=== PATIENT | female | born 1990 | race Caucasian/White ===

== ENCOUNTER 2017-06-18 19:20 | Emergency (ER) | payer OTHER, MEDICAID ==
[2017-06-18] MEDS ORDERED: Lidocaine 1% 20 ML MDV INFILT ONE (19:21)
[2017-06-18 19:38] VITALS: BP 131/75
--- NOTE | 2017-06-19 02:37 | ER ---
DATE SEEN: 06/18/2017 REASON FOR VISIT: Laceration. 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 PAST MEDICAL HISTORY: Currently 37 weeks , up to date on immunizations. ALLERGIES: Sulfa. PHYSICAL EXAMINATION: GENERAL: Nontoxic. VITAL SIGNS: Blood pressure is normal. Pulse 107, temperature 98.0. EXTREMITIES: Left index revealed a 1.5 cm sized laceration on the medial aspect of the proximal phalanx. IMPRESSION: Superficial laceration. PLAN: Lidocaine was infiltrated locally. I placed three stitches of 4-0 Prolene with no complication. Follow up in 1 week. TIME SEEN: 1930 hours. /[id number] SINTIA/JACKLYN
== END 2017-06-18 19:56 | disposition home or self-care (01) ==
LOC: FB.ED 19:20
DX: O9A.213 Injury, poisoning and certain other consequences of external causes complicating pregnancy, third trimester (principal); S61.211A Laceration without foreign body of left index finger without damage to nail, initial encounter; W26.0XXA Contact with knife, initial encounter; Y99.0 Civilian activity done for income or pay; Z88.2 Allergy status to sulfonamides; Z3A.37 37 weeks gestation of pregnancy
CPT/HCPCS: 12001; 99283

== ENCOUNTER 2017-07-11 23:57 | Inpatient (IN) | payer MEDICAID ==
[2017-07-12] MEDS ORDERED: Sodium Chloride 0.9% 10 ML Syringe FLUSH PRN (03:20)
--- NOTE | 2017-07-12 07:45 | PCM.LDHP ---
L&D History of Present Illness - General Date of Service: 07/12/17 Admit Problem/Dx: Patient Status Order with Admit Dx/Problem 07/12/17 00:08 Admission Status [Patient Status] [ADT] Routine Admission Diagnosis/Problem Admission Diagnosis/Problem -related examination Source of Information: Patient, Old Records History Limitations: Reports: No Limitations - History of Present Illness Timing/Duration: Reports: minutes: (2-5), getting worse Location, : Reports: Abdomen Quality: Reports: Ache Severity: Moderate Present Illness Comments:: Normal to date. 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 Gastrointestinal History: Reports: None Genitourinary History: Reports: None 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: Neurological History: Reports: None Psychiatric History: Reports: Anxiety, Depression Endocrine/Metabolic History: Reports: None Hematologic History: Reports: None Immunologic History: Reports: None Oncologic (Cancer) History: Reports: None Dermatologic History: Reports: None - Infectious Disease History Infectious Disease History: Reports: None - Past Surgical History Head Surgeries/Procedures: Reports: None HEENT Surgical History: Reports: None Cardiovascular Surgical History: Reports: None GI Surgical History: Reports: None Female Surgical History: Reports: None Endocrine Surgical History: Reports: None Musculoskeletal Surgical History: Reports: Other (See Below) Other Musculoskeletal Surgeries/Procedures:: knee surgery. fell today in her driveway and dislocated her right knee. Oncologic Surgical History: Reports: None Social & Family History - Family History Family Medical History: Noncontributory - Tobacco Use Smoking Status *Q: Current Every Day Smoker Years of Tobacco use: 10 Packs/Tins Daily: 0.5 Used Tobacco, but Quit: No Second Hand Smoke Exposure: No - Caffeine Use Caffeine Use: Reports: Coffee, Tea - Recreational Drug Use Recreational Drug Use: No H&P Review of Systems - Review of Systems: Review Of Systems: See Below General: Denies: Fever, Chills HEENT: Reports: No Symptoms Pulmonary: Denies: Shortness of Breath Cardiovascular: Reports: Edema (feet swell PMs). Denies: Chest Pain Gastrointestinal: Denies: Nausea, Vomiting Genitourinary: Denies: Dysuria Musculoskeletal: Reports: Joint Pain (knee strain, previous patellar dislocation ) Skin: Denies: Rash Psychiatric: Reports: Depression, Anxiety Neurological: Denies: Weakness Hematologic/Lymphatic: Denies: Anemia Immunologic: Denies: Anaphylaxis L&D Exam - Exam Exam: See Below - Vital Signs Vital Signs: Last Vital Signs Temp Pulse 110 H 07/12/17 00:07 Resp 18 07/12/17 00:07 BP 126/80 07/12/17 00:07 Pulse Ox 100 07/12/17 00:07 Weight: 176 lb - OB Specific Fundal Height In cm: 38 Contraction Duration (sec): 70-90 Contraction Frequency (min): 5-8 Contraction Intensity: Mild to Moderate Movement: Active Heart Tones: Present Heart Tones per Min: 130 Heart Rate (FHR) Variability: Moderate (6-25 bmp) Presentation: Vertex - Joshi Score Joshi Score Cervix Position: Midposition Joshi Score Consistency: Soft Joshi Score Dilation: 3-4 cm Joshi Score 's Station: -1 ,0 - Exam General: Alert, Oriented HEENT: Pupils Equal Neck: Supple Lungs: Clear to Auscultation, Normal Respiratory Effort Cardiovascular: Regular Rate, Regular Rhythm GI/Abdominal Exam: Normal Bowel Sounds, Soft Genitourinary: Normal external exam, Cervical dilitation Back Exam: Normal Inspection Extremities: Normal Inspection, No Pedal Edema Skin: No: Rash Neurological: No: Hyperreflexia DTR: 2+: Achilles (L), Achilles (R) Psychiatric: Anxious - Problem List (1) Normal labor SNOMED Code(s): 89788218 ICD Code: O80 - ENCOUNTER FOR FULL-TERM UNCOMPLICATED DELIVERY; Z37.9 - OUTCOME OF DELIVERY, UNSPECIFIED Status: Acute Priority: High Current Visit: Yes (2) Normal in third trimester SNOMED Code(s): 26783376 ICD Code: Z34.93 - ENCNTR FOR SUPRVSN OF NORMAL PREG, UNSP, THIRD TRIMESTER Status: Acute Priority: High Current Visit: Yes Problem List Initiated/Reviewed/Updated: Yes Orders Last 24hrs: Active Orders 24 hr Category Date Time Status Admission Status [Patient Status] [ADT] Routine ADT 07/12/17 00:08 Active Communication Order [RC] ASDIRECTED Care 07/12/17 07:29 Ordered Heart Tones [RC] PER UNIT ROUTINE Care 07/12/17 07:29 Ordered Notify Provider Vital Signs [RC] PRN Care 07/12/17 07:29 Ordered Notify Provider [RC] PRN Care 07/12/17 07:29 Ordered Up ad Emmie [RC] ASDIRECTED Care 07/12/17 07:29 Ordered Vital Signs [RC] PER UNIT ROUTINE Care 07/12/17 07:29 Ordered Clear Liquid Diet [DIET] Diet 07/12/17 Lunch Ordered CBC WITH AUTO DIFF [HEME] AM Lab 07/13/17 05:11 Ordered Sodium Chloride 0.9% [Saline Flush] Med 07/12/17 03:20 Active 10 ml FLUSH ASDIRECTED PRN Electronic Heart Tones Ext w TOCO [WOMSER] Per Oth 07/12/17 07:29 Ordered Unit Routine Saline Lock Insert [OM.PC] Routine Oth 07/12/17 03:20 Ordered Resuscitation Status Routine Resus Stat 07/12/17 07:29 Ordered Medication Orders Sodium Chloride (Saline Flush) 10 ml FLUSH ASDIRECTED PRN PRN Reason: Keep Vein Open Last Admin: 07/12/17 03:25 Dose: 10 ml
--- NOTE | 2017-07-12 07:57 | PCM.PNLD ---
Labor Progress Note - VS & Meds Vital Signs: Last Vital Signs Temp Pulse 110 H 07/12/17 00:07 Resp 18 07/12/17 00:07 BP 126/80 07/12/17 00:07 Pulse Ox 100 07/12/17 00:07 Active Medications: Current Medications Sodium Chloride (Saline Flush) 10 ml FLUSH ASDIRECTED PRN PRN Reason: Keep Vein Open Last Admin: 07/12/17 03:25 Dose: 10 ml - Uterine Contractions Uterine Monitoring Mode: External [place] Contraction Frequency (min): 5-8 Contraction Duration (sec): 70-90 Contraction Intensity: Mild to Moderate Uterine Resting Tone: Soft - Monitoring Heart Rate (FHR) Variability: Moderate (6-25 bmp) - Vaginal Exam Dilation (cm): 4 Effacement (Percent): 80 Station: -1 Cervical Position: Midposition Sterile Vaginal Exam Performed By: Elisa Wang - Labor Progress (Free Text) Labor Progress: 27yo at term EDC Admitted with labor, began 2200 last night. Normal to date, No ROM. ABneg Rhogam given. GBS neg. Exam normal. Contr. q2-5 min. FHT good. 130s. Cx. 3cm 75% -2. Anticipate NVD.
--- NOTE | 2017-07-12 11:36 | PCM.PNLD ---
Labor Progress Note - VS & Meds Vital Signs: Last Vital Signs Temp 98 F 07/12/17 09:38 Pulse 83 07/12/17 09:38 Resp 18 07/12/17 09:38 BP 124/72 07/12/17 09:38 Pulse Ox 100 07/12/17 00:07 Active Medications: Current Medications Sertraline HCl (Zoloft) 50 mg PO DAILY KATJA Sodium Chloride (Saline Flush) 10 ml FLUSH ASDIRECTED PRN PRN Reason: Keep Vein Open Last Admin: 07/12/17 03:25 Dose: 10 ml - Uterine Contractions Uterine Monitoring Mode: External [place] Contraction Frequency (min): 1.5-6 Contraction Duration (sec): 70-100 Contraction Intensity: Moderate Uterine Resting Tone: Soft - Monitoring Heart Rate (FHR) Variability: Moderate (6-25 bmp) - Vaginal Exam Dilation (cm): 3-4 Effacement (Percent): 75 Station: -2 Cervical Position: Midposition Sterile Vaginal Exam Performed By: Sonido Nava Vaginal Exam Comment: attempted arom no fluid leaking ay present time - Labor Progress (Free Text) Labor Progress: SROM clear fluid. Contractions 3-5' moderate Cx. 3-4cm 75% -1 FHTs 130s good. Augment with pitocin, Epidural prn.
[2017-07-12] MEDS: Lactated Ringers 1,000 ML IV SCH ×2 (12:32→13:46)
[2017-07-12] MEDS: Oxytocin 10 Units/1 ML SDV IV ONE ×2 (12:39→13:09)
[2017-07-12] MEDS ORDERED: Oxytocin/Normal Saline 10 UNIT/1,000 ML BAG IV SCH (12:45)
[2017-07-12] MEDS: Sertraline 50 MG Tab PO SCH (13:07)
[2017-07-12] MEDS ORDERED: ROPIVACAINE IV ONE (13:15)
[2017-07-12] MEDS ORDERED: Sodium Chloride 0.9% 1,000 ML IV SCH (13:15)
[2017-07-12] MEDS ORDERED: FENTANYL IV ONE (13:15)
[2017-07-12] MEDS ORDERED: Promethazine 25 MG/ML SDV IV PRN (15:18)
[2017-07-12] MEDS ORDERED: Naloxone 0.4 MG/ML SDV IVPUSH PRN (15:18)
[2017-07-12] MEDS ORDERED: diphenhydrAMINE 50 MG/ML SDV IVPUSH PRN (15:18)
[2017-07-12] MEDS ORDERED: Naloxone 0.4 MG in Sodium Chloride 0.9% 100 ML IV PRN (15:18)
[2017-07-12] MEDS ORDERED: ePHEDrine 50 MG/ML SDV IVPUSH PRN (15:18)
[2017-07-12] MEDS ORDERED: hydrOXYzine HCl 50 MG/ML SDV IM PRN ×2 (15:18)
[2017-07-12] MEDS ORDERED: Ondansetron 4 MG/2 ML SDV IVPUSH PRN (15:20)
--- NOTE | 2017-07-12 17:11 | PCM.PNLD ---
Labor Progress Note - VS & Meds Vital Signs: Last Vital Signs Temp 98 F 07/12/17 14:30 Pulse 80 07/12/17 16:30 Resp 16 07/12/17 16:30 BP 109/62 07/12/17 16:30 Pulse Ox 97 07/12/17 16:30 Active Medications: Current Medications Diphenhydramine HCl (Benadryl) 25 mg IVPUSH ASDIRECTED PRN PRN Reason: PRURITUS Ephedrine Sulfate (Ephedrine Sulfate) 5 mg IVPUSH ASDIRECTED PRN PRN Reason: HYPOTENSION Hydroxyzine HCl (Vistaril) 50 mg IM Q6H PRN PRN Reason: PRURITIS Hydroxyzine HCl (Vistaril) 0 mg IM Q4H PRN PRN Reason: N/V Lactated Ringer's (Ringers, Lactated) 1,000 mls @ 150 mls/hr IV ASDIRECTED [facility] Last Admin: 07/12/17 13:46 Dose: 150 mls/hr Oxytocin/Sodium Chloride (Pitocin In Ns 10 Units/1,000 Ml) 10 unit in 1,000 mls @ 12 mls/hr IV TITRATE KATJA; 2 MUNITS/MIN PRN Reason: Protocol Sodium Chloride (Normal Saline) 1,000 mls @ 0 mls/hr IV ASDIRECTED [facility] PRN Reason: KVO Stop: 07/16/17 13:04 Last Infusion: 07/12/17 16:30 Dose: 66 mls/hr Naloxone HCl 0.4 mg/ Sodium (Chloride) 101 mls @ 25 mls/hr IV ASDIRECTED PRN PRN Reason: PER ORDER OF ANESTHESIA Naloxone HCl (Narcan) 0.1 mg IVPUSH ASDIRECTED PRN PRN Reason: RESPIRATORY STATUS Ondansetron HCl (Zofran) 4 mg IVPUSH Q6H PRN PRN Reason: nausea Promethazine HCl (Phenergan) 6.25 - 12.5 mg IV Q4H PRN PRN Reason: NAUSEA AND VOMITING Sertraline HCl (Zoloft) 50 mg PO DAILY [facility] Last Admin: 07/12/17 13:07 Dose: Not Given Sodium Chloride (Saline Flush) 10 ml FLUSH ASDIRECTED PRN PRN Reason: Keep Vein Open Last Admin: 07/12/17 03:25 Dose: 10 ml Discontinued Medications Oxytocin (Pitocin) 10 unit IV ONETIME ONE PRN Reason: Protocol Stop: 07/12/17 11:46 Last Admin: 07/12/17 13:09 Dose: 10 unit - Uterine Contractions Uterine Monitoring Mode: External [place] Contraction Frequency (min): 1.5-4 Contraction Duration (sec): 50-80 Contraction Intensity: Moderate Uterine Resting Tone: Soft - Monitoring Heart Rate (FHR) Variability: Moderate (6-25 bmp) - Vaginal Exam Dilation (cm): 3-4 Effacement (Percent): 75 Station: -1 Cervical Position: Midposition Sterile Vaginal Exam Performed By: Ayala Johnson Vaginal Exam Comment: attempted arom no fluid leaking ay present time - Labor Progress (Free Text) Labor Progress: Comfortable. Dense Epidural anesthetic in place. Contractions q2-3min. FHT 130s good. Cx. 4+cm 80% 0st. cont. pitocin. Anticipate NVD.
--- NOTE | 2017-07-12 20:58 | PCM.PNLD ---
Labor Progress Note - VS & Meds Vital Signs: Last Vital Signs Temp 98 F 07/12/17 14:30 Pulse 88 07/12/17 18:57 Resp 18 07/12/17 18:57 BP 109/66 07/12/17 18:07 Pulse Ox 98 07/12/17 17:30 Active Medications: Current Medications Diphenhydramine HCl (Benadryl) 25 mg IVPUSH ASDIRECTED PRN PRN Reason: PRURITUS Ephedrine Sulfate (Ephedrine Sulfate) 5 mg IVPUSH ASDIRECTED PRN PRN Reason: HYPOTENSION Hydroxyzine HCl (Vistaril) 50 mg IM Q6H PRN PRN Reason: PRURITIS Hydroxyzine HCl (Vistaril) 0 mg IM Q4H PRN PRN Reason: N/V Lactated Ringer's (Ringers, Lactated) 1,000 mls @ 150 mls/hr IV ASDIRECTED [facility] Last Admin: 07/12/17 13:46 Dose: 150 mls/hr Oxytocin/Sodium Chloride (Pitocin In Ns 10 Units/1,000 Ml) 10 unit in 1,000 mls @ 12 mls/hr IV TITRATE KATJA; 2 MUNITS/MIN PRN Reason: Protocol Sodium Chloride (Normal Saline) 1,000 mls @ 0 mls/hr IV ASDIRECTED [facility] PRN Reason: KVO Stop: 07/16/17 13:04 Last Infusion: 07/12/17 16:30 Dose: 66 mls/hr Naloxone HCl 0.4 mg/ Sodium (Chloride) 101 mls @ 25 mls/hr IV ASDIRECTED PRN PRN Reason: PER ORDER OF ANESTHESIA Naloxone HCl (Narcan) 0.1 mg IVPUSH ASDIRECTED PRN PRN Reason: RESPIRATORY STATUS Ondansetron HCl (Zofran) 4 mg IVPUSH Q6H PRN PRN Reason: nausea Promethazine HCl (Phenergan) 6.25 - 12.5 mg IV Q4H PRN PRN Reason: NAUSEA AND VOMITING Sertraline HCl (Zoloft) 50 mg PO DAILY [facility] Last Admin: 07/12/17 13:07 Dose: Not Given Sodium Chloride (Saline Flush) 10 ml FLUSH ASDIRECTED PRN PRN Reason: Keep Vein Open Last Admin: 07/12/17 03:25 Dose: 10 ml Discontinued Medications Oxytocin (Pitocin) 10 unit IV ONETIME ONE PRN Reason: Protocol Stop: 07/12/17 11:46 Last Admin: 07/12/17 13:09 Dose: 10 unit - Uterine Contractions Uterine Monitoring Mode: External [place] Contraction Frequency (min): 2-5 Contraction Duration (sec): 60-80 Contraction Intensity: Moderate Uterine Resting Tone: Soft - Monitoring Heart Rate (FHR) Variability: Moderate (6-25 bmp) - Vaginal Exam Dilation (cm): 8 Effacement (Percent): 90 Station: 1 Cervical Position: Midposition Sterile Vaginal Exam Performed By: Ayala Johnson Vaginal Exam Comment: attempted arom no fluid leaking ay present time - Labor Progress (Free Text) Labor Progress: Doing well. contractions q2-3 min. FHTs 130s. Cx. 9+cm, 90% +1 station. Cont. IV pitocin augmentation. Anticipate NVD.
[2017-07-12] MEDS ORDERED: Lidocaine 1% 20 ML MDV INJECT ONE (21:30)
--- NOTE | 2017-07-12 21:57 | PCM.DEL ---
L & D Note - General Info Date of Service: 07/12/17 - Delivery Note Labor: Augmented by Oxytocin Delivery Outcome: Livebirth Delivery Method: Spontaneous Vaginal Delivery-Single Delivery Mode: Spontaneous Presentation: Left Occiput Anterior (GRACE) Nuchal Cord: Present (cut) Prep: Other (sure cleanse) Anesthesia Type: Epidural Amniotic Fluid Description: Clear Episiotomy Type: None Laceration: Periurethral Placenta: Expressed Cord: 3 Vessels Estimated Blood Loss: 250 Resuscitation Needed: No : Bulb Syringe Score 1 min: 9 Score 5 min: 9 Induction Criteria - Induction Gestational Age >/= 39 wks: Yes Reassuring Monitoring Strip: Yes Absence of Tachy Systole: Yes - Augmentation Estimated Pelvis: Reports: Adequate Weight Estimated:: Reports: AGA Reassuring Monitoring Strip: Yes Absence of Tachy Systole: Yes - General Info Date of Service: 07/12/17 Admission Dx/Problem (Free Text): term . Active labor. Functional Status: Reports: Pain Controlled - Review of Systems General: Denies: Fever HEENT: Reports: No Symptoms Pulmonary: Denies: Shortness of Breath Cardiovascular: Denies: Chest Pain Gastrointestinal: Denies: Abdominal Pain Genitourinary: Denies: Dysuria Musculoskeletal: Denies: Joint Pain Skin: Denies: Rash Neurological: Reports: No Symptoms Psychiatric: Reports: Anxiety - Patient Data Vitals - Most Recent: Last Vital Signs Temp 98 F 07/12/17 14:30 Pulse 88 07/12/17 18:57 Resp 18 07/12/17 18:57 BP 109/66 07/12/17 18:07 Pulse Ox 98 07/12/17 17:30 Weight - Most Recent: 176 lb I&O - Last 24 Hours: Intake & Output 07/12/17 07/12/17 07/12/17 06:59 14:59 22:59 Intake Total 1000 1730 Output Total 700 Balance 1000 1030 Med Orders - Current: Current Medications Diphenhydramine HCl (Benadryl) 25 mg IVPUSH ASDIRECTED PRN PRN Reason: PRURITUS Sertraline HCl (Zoloft) 50 mg PO DAILY KATJA Last Admin: 07/12/17 13:07 Dose: Not Given Discontinued Medications Ephedrine Sulfate (Ephedrine Sulfate) 5 mg IVPUSH ASDIRECTED PRN PRN Reason: HYPOTENSION Hydroxyzine HCl (Vistaril) 50 mg IM Q6H PRN PRN Reason: PRURITIS Hydroxyzine HCl (Vistaril) 0 mg IM Q4H PRN PRN Reason: N/V Lactated Ringer's (Ringers, Lactated) 1,000 mls @ 150 mls/hr IV ASDIRECTED KATJA Last Admin: 07/12/17 13:46 Dose: 150 mls/hr Oxytocin/Sodium Chloride (Pitocin In Ns 10 Units/1,000 Ml) 10 unit in 1,000 mls @ 12 mls/hr IV TITRATE KATJA; 2 MUNITS/MIN PRN Reason: Protocol Sodium Chloride (Normal Saline) 1,000 mls @ 0 mls/hr IV ASDIRECTED KATJA PRN Reason: KVO Stop: 07/16/17 13:04 Last Infusion: 07/12/17 16:30 Dose: 66 mls/hr Naloxone HCl 0.4 mg/ Sodium (Chloride) 101 mls @ 25 mls/hr IV ASDIRECTED PRN PRN Reason: PER ORDER OF ANESTHESIA Naloxone HCl (Narcan) 0.1 mg IVPUSH ASDIRECTED PRN PRN Reason: RESPIRATORY STATUS Ondansetron HCl (Zofran) 4 mg IVPUSH Q6H PRN PRN Reason: nausea Oxytocin (Pitocin) 10 unit IV ONETIME ONE PRN Reason: Protocol Stop: 07/12/17 11:46 Last Admin: 07/12/17 13:09 Dose: 10 unit Promethazine HCl (Phenergan) 6.25 - 12.5 mg IV Q4H PRN PRN Reason: NAUSEA AND VOMITING Sodium Chloride (Saline Flush) 10 ml FLUSH ASDIRECTED PRN PRN Reason: Keep Vein Open Last Admin: 07/12/17 03:25 Dose: 10 ml - Exam General: Cooperative HEENT: Pupils Equal Neck: Supple Lungs: Clear to Auscultation Cardiovascular: Regular Rate, Regular Rhythm GI/Abdominal Exam: Soft, Non-Tender (Female) Exam: Enlarged Uterus Back Exam: Normal Inspection Extremities: Normal Inspection, No Pedal Edema Peripheral Pulses: 2+: Dorsalis Pedis (L), Dorsalis Pedis (R) Skin: Warm, Dry. No: Rash Neurological: Normal Speech Psy/Mental Status: Normal Affect - Problem List & Annotations (1) Normal labor SNOMED Code(s): 81600590 Code(s): O80 - ENCOUNTER FOR FULL-TERM UNCOMPLICATED DELIVERY; Z37.9 - OUTCOME OF DELIVERY, UNSPECIFIED Status: Acute Priority: High Current Visit: Yes Annotation/Comment:: Delivered without complication. (2) Normal in third trimester SNOMED Code(s): 43172692 Code(s): Z34.93 - ENCNTR FOR SUPRVSN OF NORMAL PREG, UNSP, THIRD TRIMESTER Status: Acute Priority: High Current Visit: Yes - Problem List Review Problem List Initiated/Reviewed/Updated: Yes - My Orders Last 24 Hours: My Active Orders 07/12/17 03:20 Sodium Chloride 0.9% [Saline Flush] 10 ml FLUSH ASDIRECTED PRN Saline Lock Insert [OM.PC] Routine 07/12/17 07:29 Communication Order [RC] ASDIRECTED Notify Provider Vital Signs [RC] PRN Notify Provider [RC] PRN Up ad Emmie [RC] ASDIRECTED Vital Signs [RC] PER UNIT ROUTINE Resuscitation Status Routine 07/12/17 07:59 Admission Status [Patient Status] [ADT] Routine 07/12/17 11:30 Sertraline [Zoloft] 50 mg PO DAILY 07/12/17 13:15 Sodium Chloride 0.9% [Normal Saline] 1,000 ml IV ASDIRECTED 07/12/17 15:00 Respiratory Rate [OM.PC] Routine 07/12/17 15:18 diphenhydrAMINE [Benadryl] 25 mg IVPUSH ASDIRECTED PRN 07/12/17 21:45 May Shower [RC] ASDIRECTED Vital Signs [RC] PFP Assess Lochia [WOMSER] Per Unit Routine Assess Uterine Involution [WOMSER] Per Unit Routine 07/12/17 21:46 Perineal Care [OM.PC] Per Unit Routine Peripheral IV Discontinue [OM.PC] Routine 07/12/17 Dinner Regular Diet [DIET] 07/13/17 05:11 CBC WITH AUTO DIFF [HEME] AM 07/13/17 09:00 Vit/FA/Fe Fumarate [-U] 1 each PO DAILY - Assessment Assessment:: NVD. Pushed for ~15'. GRACE delivery of head. Nares and mouth suctioned. Tight nuchal loop of cord cut on perineum. The remainder of the delivered with ease. Suctioned, dried. Good cry. Baby laid up on mom's tummy. Spont. wise placenta. 3 vessel cord. EBL 250 ml. 1cm L periurethral lac required no sutures. Pit to 600ml/h. Fundus firmed nicely. Plan routine cares.
[2017-07-13] MEDS: Acetaminophen 325 MG Tab PO PRN ×3 (00:15→13:40)
--- NOTE | 2017-07-13 08:13 | PCM.PNPP ---
- General Info Date of Service: 07/13/17 Functional Status: Reports: Ambulating, Urinating. Denies: New Symptoms - Review of Systems General: Denies: Fever HEENT: Denies: Headaches Pulmonary: Denies: Shortness of Breath Cardiovascular: Denies: Chest Pain Gastrointestinal: Denies: Diarrhea, Vomiting Genitourinary: Denies: Pain Musculoskeletal: Denies: Joint Swelling Skin: Denies: Rash Neurological: Reports: No Symptoms Psychiatric: Reports: No Symptoms - General Info Date of Service: 07/13/17 - Patient Data Vital Signs - Most Recent: Last Vital Signs Temp 98.1 F 07/13/17 02:00 Pulse 84 07/13/17 02:00 Resp 17 07/13/17 02:00 BP 115/69 07/13/17 02:00 Pulse Ox 98 07/13/17 02:00 Weight - Most Recent: 176 lb I&O - Last 24 Hours: Intake & Output 07/12/17 07/13/17 07/13/17 22:59 06:59 14:59 Intake Total 400 Balance 400 Lab Results - Last 24 Hours: Laboratory Results - last 24 hr 07/13/17 Range/Units 06:55 WBC 14.1 H (4.5-12.0) X10-3/uL RBC 3.55 (3.23-5.20) x10(6)uL Hgb 10.6 L (11.5-15.5) g/dL Hct 32.8 (30.0-51.3) % MCV 92.7 (80-96) fL MCH 30.0 (27.7-33.6) pg MCHC 32.3 (32.2-35.4) g/dL RDW 13.7 (11.5-15.5) % Plt Count 237 (125-369) X10(3)uL MPV 8.4 (7.4-10.4) fL Neut % (Auto) 85.4 H (46-82) % Lymph % (Auto) 11.4 L (13-37) % [place] % (Auto) 2.1 L (4-12) % Eos % (Auto) 1 (1.0-5.0) % Baso % (Auto) 0 (0-2) % Neut # (Auto) 12.0 H (1.6-8.3) # Lymph # (Auto) 1.6 (0.6-5.0) # [place] # (Auto) 0.3 (0.0-1.3) # Eos # (Auto) 0.1 (0.0-0.8) # Baso # (Auto) 0.1 (0.0-0.2) # Med Orders - Current: Current Medications Acetaminophen (Tylenol) 650 mg PO Q4H PRN PRN Reason: Pain Last Admin: 07/13/17 05:28 Dose: 650 mg Diphenhydramine HCl (Benadryl) 25 mg IVPUSH ASDIRECTED PRN PRN Reason: PRURITUS Multivit/Folic Acid/Iron (-U) 1 each PO DAILY KATJA Sertraline HCl (Zoloft) 50 mg PO DAILY KATJA Last Admin: 07/12/17 13:07 Dose: Not Given Discontinued Medications Ephedrine Sulfate (Ephedrine Sulfate) 5 mg IVPUSH ASDIRECTED PRN PRN Reason: HYPOTENSION Hydroxyzine HCl (Vistaril) 50 mg IM Q6H PRN PRN Reason: PRURITIS Hydroxyzine HCl (Vistaril) 0 mg IM Q4H PRN PRN Reason: N/V Lactated Ringer's (Ringers, Lactated) 1,000 mls @ 150 mls/hr IV ASDIRECTED KATJA Last Admin: 07/12/17 13:46 Dose: 150 mls/hr Oxytocin/Sodium Chloride (Pitocin In Ns 10 Units/1,000 Ml) 10 unit in 1,000 mls @ 12 mls/hr IV TITRATE KATJA; 2 MUNITS/MIN PRN Reason: Protocol Sodium Chloride (Normal Saline) 1,000 mls @ 0 mls/hr IV ASDIRECTED KATJA PRN Reason: KVO Stop: 07/16/17 13:04 Last Infusion: 07/12/17 16:30 Dose: 66 mls/hr Naloxone HCl 0.4 mg/ Sodium (Chloride) 101 mls @ 25 mls/hr IV ASDIRECTED PRN PRN Reason: PER ORDER OF ANESTHESIA Lidocaine HCl (Xylocaine 1%) 20 ml INJECT ONETIME ONE Stop: 07/12/17 21:31 Last Admin: 07/12/17 21:35 Dose: 20 ml Naloxone HCl (Narcan) 0.1 mg IVPUSH ASDIRECTED PRN PRN Reason: RESPIRATORY STATUS Ondansetron HCl (Zofran) 4 mg IVPUSH Q6H PRN PRN Reason: nausea Oxytocin (Pitocin) 10 unit IV ONETIME ONE PRN Reason: Protocol Stop: 07/12/17 11:46 Last Admin: 07/12/17 13:09 Dose: 10 unit Promethazine HCl (Phenergan) 6.25 - 12.5 mg IV Q4H PRN PRN Reason: NAUSEA AND VOMITING Sodium Chloride (Saline Flush) 10 ml FLUSH ASDIRECTED PRN PRN Reason: Keep Vein Open Last Admin: 07/12/17 03:25 Dose: 10 ml - Interaction Disposition, : in Room with Family Infant Interaction: Holding Infant Infant Feeding: Breastfed Infant; Nursed Well Support Person: Significant Other - Recovery Exam Fundal Tone: Firm Fundal Level: 1 Fingerbreadths Above Umbilicus Fundal Placement: Midline Lochia Amount: Small Lochia Color: Rubra/Red Perineum Description: Intact, Minimal Bruising/Swelling, Edematous Episiotomy/Laceration: None Bladder Status: Voiding Urinary Elimination: Voided - Exam General: Alert, Oriented Neck: Supple Lungs: Clear to Auscultation Cardiovascular: Regular Rate, Regular Rhythm GI/Abdominal Exam: Normal Bowel Sounds, Soft, Tender (fundus 16wk size, mildly tender) Extremities: Normal Inspection. No: Pedal Edema, Sulma's Sign Skin: No: Rash Neurological: No New Focal Deficit Psy/Mental Status: Normal Affect, Normal Mood - Problem List & Annotations (1) Normal labor SNOMED Code(s): 75620121 Code(s): O80 - ENCOUNTER FOR FULL-TERM UNCOMPLICATED DELIVERY; Z37.9 - OUTCOME OF DELIVERY, UNSPECIFIED Status: Acute Priority: High Current Visit: Yes Annotation/Comment:: Delivered without complication. PPD #1 Baby Rh+ RhoGam for mo. Exam normal. Lochia moderate. Routine PP cares. (2) Normal in third trimester SNOMED Code(s): 16701923 Code(s): Z34.93 - ENCNTR FOR SUPRVSN OF NORMAL PREG, UNSP, THIRD TRIMESTER Status: Acute Priority: High Current Visit: Yes - Problem List Review Problem List Initiated/Reviewed/Updated: Yes - My Orders Last 24 Hours: My Active Orders 07/12/17 07:29 Communication Order [RC] ASDIRECTED Notify Provider Vital Signs [RC] PRN Notify Provider [RC] PRN Up ad Emmie [RC] ASDIRECTED Vital Signs [RC] PER UNIT ROUTINE Resuscitation Status Routine 07/12/17 07:59 Admission Status [Patient Status] [ADT] Routine 07/12/17 11:30 Sertraline [Zoloft] 50 mg PO DAILY 07/12/17 15:00 Respiratory Rate [OM.PC] Routine 07/12/17 15:18 diphenhydrAMINE [Benadryl] 25 mg IVPUSH ASDIRECTED PRN 07/12/17 21:45 May Shower [RC] ASDIRECTED Vital Signs [RC] PFP Assess Lochia [WOMSER] Per Unit Routine Assess Uterine Involution [WOMSER] Per Unit Routine 07/12/17 21:46 Perineal Care [OM.PC] Per Unit Routine Peripheral IV Discontinue [OM.PC] Routine 07/12/17 23:44 Acetaminophen [Tylenol] 650 mg PO Q4H PRN 07/12/17 Dinner Regular Diet [DIET] 07/13/17 09:00 Vit/FA/Fe Fumarate [-U] 1 each PO DAILY - Assessment Assessment:: NVD. Pushed for ~15'. GRACE delivery of head. Nares and mouth suctioned. Tight nuchal loop of cord cut on perineum. The remainder of the delivered with ease. Suctioned, dried. Good cry. Baby laid up on mom's tummy. Spont. wise placenta. 3 vessel cord. EBL 250 ml. 1cm L periurethral lac required no sutures. Pit to 600ml/h. Fundus firmed nicely. Plan routine cares.
[2017-07-13] MEDS: Prenatal Multivitamin with Calcium/Folic Acid/Fe Fumarate Cap PO SCH (10:28)
[2017-07-13] MEDS: Sertraline 50 MG Tab PO SCH (10:28)
[2017-07-14] MEDS: Acetaminophen 325 MG Tab PO PRN ×2 (08:37→15:25)
[2017-07-14] MEDS: Prenatal Multivitamin with Calcium/Folic Acid/Fe Fumarate Cap PO SCH (08:37)
[2017-07-14] MEDS: Sertraline 50 MG Tab PO SCH (08:37)
--- NOTE | 2017-07-14 09:10 | PCM.DCSUM1 ---
Discharge Summary - Hospital Course Free Text/Narrative:: 27yo with normal vaginal delivery at term. Epidural anesthetic. course normal but for an area of heel numbness R. Motor exam normal. Hgb. 10+g. RhoGam given. Discharge home with baby "Johnathan". Appt. Dr. Gibbons 6 wks PP. - Discharge Data Discharge Date: 07/14/17 Discharge Disposition: Home, Self-Care 01 Condition: Good - Discharge Diagnosis/Problem(s) (1) Normal labor SNOMED Code(s): 89735786 ICD Code: O80 - ENCOUNTER FOR FULL-TERM UNCOMPLICATED DELIVERY; Z37.9 - OUTCOME OF DELIVERY, UNSPECIFIED Status: Acute Priority: High Current Visit: Yes Problem Details: Delivered without complication. PPD #1 Baby Rh+ RhoGam for mo. Exam normal. Lochia moderate. Routine PP cares. (2) Normal in third trimester SNOMED Code(s): 34947114 ICD Code: Z34.93 - ENCNTR FOR SUPRVSN OF NORMAL PREG, UNSP, THIRD TRIMESTER Status: Acute Priority: High Current Visit: Yes - Patient Instructions Diet: Usual Diet as Tolerated, Regular Diet as Tolerated Driving: May Drive Today Showering/Bathing: May Shower - Discharge Plan Home Medications: Home Meds Vits #93/Iron Fum/FA [ Formula Tablet] 1 each PO DAILY [History] Sertraline [Zoloft] 50 mg PO DAILY 06/18/17 [History] Acetaminophen [Tylenol] 650 mg PO Q4H PRN tablet 07/14/17 [Rx] Patient Handouts: , Smoking Cessation, Tips for Success, Easy-to- Read, Depression and Baby Blues, Vaginal Delivery, Care After, Challenges and Solutions, Care After Vaginal Delivery, Hand Washing - Discharge Summary/Plan Comment DC Time >30 min.: No - Patient Data Vitals - Most Recent: Last Vital Signs Temp 97.5 F 07/13/17 13:45 Pulse 79 07/13/17 13:45 Resp 18 07/13/17 13:45 BP 128/81 07/13/17 13:45 Pulse Ox 98 07/13/17 02:00 Weight - Most Recent: 176 lb Lab Results - Last 24 hrs: Laboratory Results - last 24 hr 07/13/17 Range/Units 06:58 Blood Type AB NEGATIVE Gel Antibody Screen Negative Screen Negative Rhogam Indicated Yes, baby rh pos Med Orders - Current: Current Medications Acetaminophen (Tylenol) 650 mg PO Q4H PRN PRN Reason: Pain Last Admin: 07/14/17 08:37 Dose: 650 mg Multivit/Folic Acid/Iron (-U) 1 each PO DAILY [facility] Last Admin: 07/14/17 08:37 Dose: 1 each Sertraline HCl (Zoloft) 50 mg PO DAILY [facility] Last Admin: 07/14/17 08:37 Dose: 50 mg Discontinued Medications Diphenhydramine HCl (Benadryl) 25 mg IVPUSH ASDIRECTED PRN PRN Reason: PRURITUS Ephedrine Sulfate (Ephedrine Sulfate) 5 mg IVPUSH ASDIRECTED PRN PRN Reason: HYPOTENSION Hydroxyzine HCl (Vistaril) 50 mg IM Q6H PRN PRN Reason: PRURITIS Hydroxyzine HCl (Vistaril) 0 mg IM Q4H PRN PRN Reason: N/V Lactated Ringer's (Ringers, Lactated) 1,000 mls @ 150 mls/hr IV ASDIRECTED [facility] Last Admin: 07/12/17 13:46 Dose: 150 mls/hr Oxytocin/Sodium Chloride (Pitocin In Ns 10 Units/1,000 Ml) 10 unit in 1,000 mls @ 12 mls/hr IV TITRATE KATJA; 2 MUNITS/MIN PRN Reason: Protocol Sodium Chloride (Normal Saline) 1,000 mls @ 0 mls/hr IV ASDIRECTED KATJA PRN Reason: KVO Stop: 07/16/17 13:04 Last Infusion: 07/12/17 16:30 Dose: 66 mls/hr Naloxone HCl 0.4 mg/ Sodium (Chloride) 101 mls @ 25 mls/hr IV ASDIRECTED PRN PRN Reason: PER ORDER OF ANESTHESIA Lidocaine HCl (Xylocaine 1%) 20 ml INJECT ONETIME ONE Stop: 07/12/17 21:31 Last Admin: 07/12/17 21:35 Dose: 20 ml Naloxone HCl (Narcan) 0.1 mg IVPUSH ASDIRECTED PRN PRN Reason: RESPIRATORY STATUS Ondansetron HCl (Zofran) 4 mg IVPUSH Q6H PRN PRN Reason: nausea Oxytocin (Pitocin) 10 unit IV ONETIME ONE PRN Reason: Protocol Stop: 07/12/17 11:46 Last Admin: 07/12/17 13:09 Dose: 10 unit Promethazine HCl (Phenergan) 6.25 - 12.5 mg IV Q4H PRN PRN Reason: NAUSEA AND VOMITING Sodium Chloride (Saline Flush) 10 ml FLUSH ASDIRECTED PRN PRN Reason: Keep Vein Open Last Admin: 07/12/17 03:25 Dose: 10 ml *Q Meaningful Use (DIS) - VTE *Q VTE Criteria *Q: - Stroke *Q Stroke Criteria *Q: - AMI *Q AMI Criteria *Q:
[2017-07-14 09:24] VITALS: BP 127/77
== END 2017-07-14 17:00 | disposition home or self-care (01) | DRG 775 ==
LOC: FB.OBCHECK 23:57 → FB.OB 23:58 → FB.OBCHECK 07-12 07:58 → FB.OB 07-12 07:59
PROVIDERS: ADMIT Family Medicine; ATTEND Family Medicine
PROC: 10E0XZZ Delivery of Products of Conception, External Approach (ICD-10-PCS; principal; 2017-07-13)
PROC: 3E0334Z Introduction of Serum, Toxoid and Vaccine into Peripheral Vein, Percutaneous Approach (ICD-10-PCS; 2017-07-13)
DX: O69.81X0 Labor and delivery complicated by cord around neck, without compression, not applicable or unspecified (principal); O99.334 Smoking (tobacco) complicating childbirth; O99.344 Other mental disorders complicating childbirth; F32.9 Major depressive disorder, single episode, unspecified; Z3A.39 39 weeks gestation of pregnancy; Z37.0 Single live birth; O36.0990 Maternal care for other rhesus isoimmunization, unspecified trimester, not applicable or unspecified; Z88.2 Allergy status to sulfonamides
CPT/HCPCS: 36415; 59409; 85025; 85460; 86850; 86900; 86901; 99211; A9270-GY; J2590; J2790; J2795; J3010; J7030; J7050; J7120